=== PATIENT | female | born 1970 | race American Indian/Alaskan Native ===

== ENCOUNTER 2017-12-18 19:04 | Emergency (ER) | payer MEDICARE ==
[2017-12-18] MEDS ORDERED: TYLENOL PO ONE (19:35)
--- NOTE | 2017-12-18 22:16 | XRay Report ---
FINAL REPORT PROCEDURE: XR CHEST ROUTINE 2V TECHNIQUE: PA and lateral chest radiographs were obtained. CPT 84448 HISTORY: productive cough COMPARISON: No prior studies are available for comparison. FINDINGS: Heart: Normal. Mediastinum/Vessels: Normal. Lungs/Pleural space: Normal. Bony thorax: No acute osseous abnormality. Other: IMPRESSION: Negative examination.
[2017-12-18] MEDS ORDERED: TESSALON PERLES PO ONE (23:33)
[2017-12-18] MEDS ORDERED: LIDOCAINE VISCOUS 2% PO ONE (23:33)
--- NOTE | 2017-12-18 23:39 | Emergency Department Report ---
- General Chief Complaint: Upper Respiratory Infection Stated Complaint: FLU LIKE SYMPTOMS Time Seen by Provider: 12/18/17 21:31 Source: patient Mode of arrival: Ambulatory Limitations: No Limitations - History of Present Illness Initial Comments: This is a 47-year-old female nontoxic, well nourished in appearance, no acute signs of distress presents to the ED with c/o of productive cough, rhinorrhea, nasal congestion, and sore throat x4 days. Patient describes productive cough as yellow mucus production. Patient denies any sick contact. Patient denies any recent travels, long car, recent hospital stays. Patient denies any calf pain or calf tenderness. Patient denies any chest pain, short of breath, fever , chills, nausea, vomiting, hemoptysis, numbness, tingling, headache or stiff neck. Patient stated allergies to PCN. MD Complaint: cough, sore throat, rhinorrhea, nasal congestion -: days(s) Severity: mild Severity scale (0 -10): 0 Consistency: constant Improves With: nothing Worsens With: nothing Associated Symptoms: rhinorrhea, nasal congestion, sore throat, cough. denies: fever, chills, myalgias, diaphoresis, headache, stiff neck, chest pain, shortness of breath, abdominal pain, nausea, vomiting, diarrhea, dysuria, rash, confusion, right sweats, weight loss, epistaxis, hoarseness, ear pain Treatments Prior to Arrival: none - Related Data Home Medications Medication Instructions Recorded Confirmed Last Taken Hydrochlorothiazide [Hctz] 25 mg PO QDAY 06/15/13 06/15/13 Unknown Previous Rx's Medication Instructions Recorded Last Taken Type Erythromycin Base [Erythromycin] 500 mg PO TID #21 tablet 06/16/13 Unknown Rx Hydrocodone Bit/Acetaminophen 1 each PO 4XD #14 tablet 06/16/13 Unknown Rx [Lortab 7.5-500 Tablet] Ibuprofen [Motrin] 800 mg PO TID PRN #14 tablet 06/16/13 Unknown Rx Clindamycin HCl [Clindamycin Oral] 150 mg PO Q6H #40 capsule 10/26/13 Unknown Rx Lidocaine Viscous 2% [Xylocaine 5 ml MM Q4H #120 ml 10/26/13 Unknown Rx Viscous 2%] Azithromycin [Zithromax Z-MARSHALL] 250 mg PO DAILY #6 tablet 12/19/17 Unknown Rx Benzonatate [Tessalon Perle] 100 mg PO Q8H PRN #20 capsule 12/19/17 Unknown Rx Ibuprofen [Motrin] 600 mg PO Q8H PRN #30 tablet 12/19/17 Unknown Rx Nystas/Diphen/Xyl Visc/Mylanta 15 ml MM Q4H PRN 10 Days ml 12/19/17 Unknown Rx [Magic Mouthwash] Allergies Allergy/AdvReac Type Severity Reaction Status Date / Time Penicillins AdvReac Swelling Verified 06/15/13 21:31 ED Review of Systems ROS: Stated complaint: FLU LIKE SYMPTOMS Other details as noted in HPI Constitutional: denies: chills, fever Eyes: denies: eye pain, eye discharge, vision change ENT: throat pain. denies: ear pain Respiratory: cough. denies: shortness of breath, wheezing Cardiovascular: denies: chest pain, palpitations Endocrine: no symptoms reported Gastrointestinal: denies: abdominal pain, nausea, diarrhea Genitourinary: denies: urgency, dysuria, discharge Musculoskeletal: denies: back pain, joint swelling, arthralgia Skin: denies: rash, lesions Neurological: denies: headache, weakness, paresthesias Psychiatric: denies: anxiety, depression Hematological/Lymphatic: denies: easy bleeding, easy bruising ED Past Medical Hx - Past Medical History Hx Hypertension: Yes - Social History Smoking Status: Former Smoker Substance Use Type: None - Medications Home Medications: Home Medications Medication Instructions Recorded Confirmed Last Taken Type Hydrochlorothiazide [Hctz] 25 mg PO QDAY 06/15/13 06/15/13 Unknown History Erythromycin Base [Erythromycin] 500 mg PO TID #21 tablet 06/16/13 Unknown Rx Hydrocodone Bit/Acetaminophen 1 each PO 4XD #14 tablet 06/16/13 Unknown Rx [Lortab 7.5-500 Tablet] Ibuprofen [Motrin] 800 mg PO TID PRN #14 tablet 06/16/13 Unknown Rx Clindamycin HCl [Clindamycin Oral] 150 mg PO Q6H #40 capsule 10/26/13 Unknown Rx Lidocaine Viscous 2% [Xylocaine 5 ml MM Q4H #120 ml 10/26/13 Unknown Rx Viscous 2%] Azithromycin [Zithromax Z-MARSHALL] 250 mg PO DAILY #6 tablet 12/19/17 Unknown Rx Benzonatate [Tessalon Perle] 100 mg PO Q8H PRN #20 capsule 12/19/17 Unknown Rx Ibuprofen [Motrin] 600 mg PO Q8H PRN #30 tablet 12/19/17 Unknown Rx Nystas/Diphen/Xyl Visc/Mylanta 15 ml MM Q4H PRN 10 Days ml 12/19/17 Unknown Rx [Magic Mouthwash] ED Physical Exam - General Limitations: No Limitations General appearance: alert, in no apparent distress - Head Head exam: Present: atraumatic, normocephalic - Eye Eye exam: Present: normal appearance Pupils: Present: normal accommodation - ENT ENT exam: Present: mucous membranes moist, TM's normal bilaterally, normal external ear exam - Expanded ENT Exam Expanded Ear exam: Present: normal external inspection Mouth exam: Present: normal external inspection Teeth exam: Present: normal inspection Throat exam: Positive: tonsillar erythema, other (Uvula midline. No abscess or swelling noted.). Negative: tonsillomegaly, tonsillar exudate, R peritonsillar mass, L peritonsillar mass - Neck Neck exam: Present: normal inspection, full ROM. Absent: tenderness, meningismus, lymphadenopathy, thyromegaly - Respiratory Respiratory exam: Present: normal lung sounds bilaterally. Absent: respiratory distress, wheezes, rales, rhonchi, stridor - Cardiovascular Cardiovascular Exam: Present: regular rate, normal rhythm, normal heart sounds. Absent: bradycardia, tachycardia, irregular rhythm, systolic murmur, diastolic murmur, rubs, gallop - GI/Abdominal GI/Abdominal exam: Present: soft, normal bowel sounds. Absent: distended, tenderness, guarding, rebound, rigid, diminished bowel sounds - Rectal Rectal exam: Present: deferred - Extremities Exam Extremities exam: Present: normal inspection, full ROM, normal capillary refill - Back Exam Back exam: Present: normal inspection, full ROM - Neurological Exam Neurological exam: Present: alert, oriented X3 - Psychiatric Psychiatric exam: Present: normal affect, normal mood - Skin Skin exam: Present: warm, dry, intact, normal color. Absent: rash ED Course Vital Signs 12/18/17 19:21 Temperature 99.2 F Pulse Rate 78 Respiratory 18 Rate Blood Pressure 121/79 O2 Sat by Pulse 98 Oximetry - Reevaluation(s) Reevaluation #1: 12/19/17 00:16 Patient is speaking in full sentences with no signs of distress noted. ED Medical Decision Making - Medical Decision Making This is a 47-year-old female that presents with upper respiratory infection. Patient is stable and was examined by me. Chest x-ray has been obtained and dictated by radiologist with normal exam. Patient is notified of x-ray results with no questions noted. Due to patient having symptoms of upper respiratory infection and worsening I will treat patient empirically with zpak. Patient was instructed to increase hydration, rest and take Motrin for fever episodes. Patient received motrin and tesslone perrls in the ED. Vitals stable. Patient is nonfebrile and normal heart rate. Patient was orally hydrated and patient tolerated well known nausea or vomiting. Patient was instructed Follow-up with a primary care doctor in 3-5 days or if symptoms worsen and continue return to emergency room as soon as possible. At time time of discharge, the patient does not seem toxic or ill in appearance. No acute signs of distress noted. Patient agrees to discharge treatment plan of care. No further questions noted by the patient. Critical care attestation.: If time is entered above; I have spent that time in minutes in the direct care of this critically ill patient, excluding procedure time. ED Disposition Clinical Impression: Sore throat Upper respiratory infection Qualifiers: URI type: unspecified URI Qualified Code(s): J06.9 - Acute upper respiratory infection, unspecified Disposition: DC-01 TO HOME OR SELFCARE Is pt being admited?: No Does the pt Need Aspirin: No Condition: Stable Instructions: Upper Respiratory Infection (ED) Additional Instructions: Follow-up with a primary care doctor in 3-5 days or if symptoms worsen and continue return to emergency room as soon as possible. Prescriptions: Azithromycin [Zithromax Z-MARSHALL] 250 mg PO DAILY #6 tablet Benzonatate [Tessalon Perle] 100 mg PO Q8H PRN #20 capsule PRN Reason: Cough Ibuprofen [Motrin] 600 mg PO Q8H PRN #30 tablet PRN Reason: Pain Nystas/Diphen/Xyl Visc/Mylanta [Magic Mouthwash] 15 ml MM Q4H PRN 10 Days ml PRN Reason: Sore Throat Referrals: PRIMARY CARE, [Primary Care Provider] - 3-5 Days BIN PACHECO MD [Staff Physician] - 3-5 Days [facility] [Outside] - 3-5 Days [facility] [Outside] - 3-5 Days Forms: Work/School Release Form(ED)
[2017-12-19 00:29] VITALS: BP 120/80
== END 2017-12-19 00:30 | disposition home or self-care (01) ==
LOC: ED 19:04
DX: J06.9 Acute upper respiratory infection, unspecified (principal); I10 Essential (primary) hypertension; Z88.0 Allergy status to penicillin; Z87.891 Personal history of nicotine dependence
CPT/HCPCS: 71046; 87116; 87430; 99284

== ENCOUNTER 2018-12-16 18:18 | Emergency (ER) | payer MEDICARE ==
[2018-12-16 18:57] VITALS: BP 136/81
--- NOTE | 2018-12-16 18:58 | Emergency Department Report ---
Chief Complaint: Fever Stated Complaint: COLD SX Time Seen by Provider: 12/16/18 18:54 - HPI History of Present Illness: Pt presents with fever, cough, rhinorrhea, congestion x3 days pt has green phlegm production sore throat no sick contacts took nyquil, robitussin, mucinex, theraflu PMHx HTN previous smoker MSE screening note: Focused history and physical exam performed. Due to findings the following was ordered: CXR ED Disposition for MSE Condition: Stable
--- NOTE | 2018-12-16 21:13 | XRay Report ---
PROCEDURE: Chest. TECHNIQUE: PA and lateral views. HISTORY: Productive cough. COMPARISONS: Chest 12/18/2017. FINDINGS: The heart size is normal. There is mild tortuosity of the thoracic aorta. The lungs are clear and wel l expanded. There are no pleural effusions. The soft tissues and regional skeleton are unremarkable. IMPRESSION: No evidence of acute disease. This document is electronically signed by Earnest Joe MD., December 16 2018 09:12:00 PM ET
[2018-12-16] MEDS ORDERED: TYLENOL #3 PO ONE (21:21)
[2018-12-16] MEDS ORDERED: PROVENTIL IH ONE (21:21)
[2018-12-16] MEDS ORDERED: ZITHROMAX PO ONE (21:21)
[2018-12-16] MEDS ORDERED: DELTASONE PO ONE (21:21)
--- NOTE | 2018-12-16 21:41 | Emergency Department Report ---
ED General Adult HPI - General Chief complaint: Fever Stated complaint: COLD SX Time Seen by Provider: 12/16/18 18:54 Source: patient Mode of arrival: Ambulatory Limitations: No Limitations - History of Present Illness Initial comments: Pt presents with fever, cough, rhinorrhea, congestion x3 days pt has green phlegm production sore throat no sick contacts took nyquil, robitussin, mucinex, theraflu PMHx HTN previous smoker Onset/Timin -: week(s) Location: chest Radiation: non-radiation Severity scale (0 -10): 9 Quality: sharp Consistency: constant Improves with: rest Worsens with: other (movement activity) Associated Symptoms: cough, fever/chills, headaches, shortness of breath - Related Data Home Medications Medication Instructions Recorded Confirmed Last Taken hydroCHLOROthiazide [Hctz] 25 mg PO QDAY 06/15/13 06/15/13 Unknown Previous Rx's Medication Instructions Recorded Last Taken Type Erythromycin Base [Erythromycin] 500 mg PO TID #21 tablet 06/16/13 Unknown Rx Hydrocodone Bit/Acetaminophen 1 each PO 4XD #14 tablet 06/16/13 Unknown Rx [Lortab 7.5-500 Tablet] Ibuprofen [Motrin] 800 mg PO TID PRN #14 tablet 06/16/13 Unknown Rx Clindamycin HCl [Clindamycin Oral] 150 mg PO Q6H #40 capsule 10/26/13 Unknown Rx Lidocaine Viscous 2% [Xylocaine 5 ml MM Q4H #120 ml 10/26/13 Unknown Rx Viscous 2%] Azithromycin [Zithromax Z-MARSHALL] 250 mg PO DAILY #6 tablet 12/19/17 Unknown Rx Benzonatate [Tessalon Perle] 100 mg PO Q8H PRN #20 capsule 12/19/17 Unknown Rx Ibuprofen [Motrin] 600 mg PO Q8H PRN #30 tablet 12/19/17 Unknown Rx Nystas/Diphen/Xyl Visc/Mylanta 15 ml MM Q4H PRN 10 Days ml 12/19/17 Unknown Rx [Magic Mouthwash] Azithromycin [Zithromax Z-MARSHALL] 250 tab PO DAILY #6 tab 12/16/18 Unknown Rx Benzonatate [Tessalon Perles] 100 mg PO Q8HR PRN #30 capsule 12/16/18 Unknown Rx Ibuprofen 800 mg PO TID PRN #30 tablet 12/16/18 Unknown Rx predniSONE [Deltasone] 40 mg PO QDAY 5 Days #10 tab 12/16/18 Unknown Rx Allergies Allergy/AdvReac Type Severity Reaction Status Date / Time Penicillins AdvReac Swelling Verified 06/15/13 21:31 ED Review of Systems ROS: Stated complaint: COLD SX Other details as noted in HPI Constitutional: denies: chills, fever Eyes: denies: eye pain, eye discharge, vision change ENT: ear pain, throat pain, congestion Respiratory: cough, shortness of breath, wheezing Cardiovascular: chest pain Endocrine: no symptoms reported Gastrointestinal: denies: abdominal pain, nausea, diarrhea Genitourinary: denies: urgency, dysuria, discharge Musculoskeletal: denies: back pain, joint swelling, arthralgia Skin: denies: rash, lesions Neurological: denies: headache, weakness, paresthesias Psychiatric: denies: anxiety, depression Hematological/Lymphatic: denies: easy bleeding, easy bruising ED Past Medical Hx - Past Medical History Hx Hypertension: Yes - Surgical History Past Surgical History?: No - Social History Smoking Status: Former Smoker Substance Use Type: None - Medications Home Medications: Home Medications Medication Instructions Recorded Confirmed Last Taken Type hydroCHLOROthiazide [Hctz] 25 mg PO QDAY 06/15/13 06/15/13 Unknown History Erythromycin Base [Erythromycin] 500 mg PO TID #21 tablet 06/16/13 Unknown Rx Hydrocodone Bit/Acetaminophen 1 each PO 4XD #14 tablet 06/16/13 Unknown Rx [Lortab 7.5-500 Tablet] Ibuprofen [Motrin] 800 mg PO TID PRN #14 tablet 06/16/13 Unknown Rx Clindamycin HCl [Clindamycin Oral] 150 mg PO Q6H #40 capsule 10/26/13 Unknown Rx Lidocaine Viscous 2% [Xylocaine 5 ml MM Q4H #120 ml 10/26/13 Unknown Rx Viscous 2%] Azithromycin [Zithromax Z-MARSHALL] 250 mg PO DAILY #6 tablet 12/19/17 Unknown Rx Benzonatate [Tessalon Perle] 100 mg PO Q8H PRN #20 capsule 12/19/17 Unknown Rx Ibuprofen [Motrin] 600 mg PO Q8H PRN #30 tablet 12/19/17 Unknown Rx Nystas/Diphen/Xyl Visc/Mylanta 15 ml MM Q4H PRN 10 Days ml 12/19/17 Unknown Rx [Magic Mouthwash] Azithromycin [Zithromax Z-MARSHALL] 250 tab PO DAILY #6 tab 12/16/18 Unknown Rx Benzonatate [Tessalon Perles] 100 mg PO Q8HR PRN #30 capsule 12/16/18 Unknown Rx Ibuprofen 800 mg PO TID PRN #30 tablet 12/16/18 Unknown Rx predniSONE [Deltasone] 40 mg PO QDAY 5 Days #10 tab 12/16/18 Unknown Rx ED Physical Exam - General Limitations: No Limitations General appearance: alert, in no apparent distress - Head Head exam: Present: atraumatic, normocephalic - Eye Eye exam: Present: normal appearance, PERRL, EOMI Pupils: Present: normal accommodation - ENT ENT exam: Present: mucous membranes moist - Expanded ENT Exam Expanded Ear exam: Present: normal external inspection TM/Canal exam: Erythema: Right TM, Left TM, Canal Tenderness: Left TM, Right TM Mouth exam: Absent: trismus Throat exam: Positive: normal inspection, tonsillar erythema, tonsillomegaly, other (uvula midline no exudate no lesions ). Negative: tonsillar exudate, R peritonsillar mass, L peritonsillar mass - Neck Neck exam: Present: normal inspection, full ROM, lymphadenopathy. Absent: tenderness, thyromegaly - Respiratory Respiratory exam: Present: normal lung sounds bilaterally, wheezes, chest wall tenderness (right lateral chest wall tenderness ). Absent: respiratory distress, stridor - Cardiovascular Cardiovascular Exam: Present: regular rate, normal rhythm, normal heart sounds. Absent: systolic murmur, diastolic murmur, rubs, gallop - GI/Abdominal GI/Abdominal exam: Present: soft, normal bowel sounds. Absent: distended, tenderness, guarding, rebound, rigid, bruit, hernia - Extremities Exam Extremities exam: Present: normal inspection, full ROM, normal capillary refill. Absent: tenderness - Back Exam Back exam: Present: normal inspection, full ROM, rash noted. Absent: tenderness, CVA tenderness (R), CVA tenderness (L) - Neurological Exam Neurological exam: Present: alert, oriented X3, CN II-XII intact, normal gait, reflexes normal - Psychiatric Psychiatric exam: Present: normal affect, normal mood - Skin Skin exam: Present: warm, dry, intact, normal color. Absent: rash ED Course Vital Signs 12/16/18 18:56 Temperature 100 F H Pulse Rate 85 Respiratory 14 Rate Blood Pressure 136/81 O2 Sat by Pulse 95 Oximetry ED Medical Decision Making - Radiology Data Radiology results: report reviewed, image reviewed cc: MIGUEL SHARPE Fluoro Time In Minutes: PROCEDURE: Chest. TECHNIQUE: PA and lateral views. HISTORY: Productive cough. COMPARISONS: Chest 12/18/2017. FINDINGS: The heart size is normal. There is mild tortuosity of the thoracic aorta. The lungs are clear and well expanded. There are no pleural effusions. The soft tissues and regional skeleton are unremarkable. IMPRESSION: No evidence of acute disease. This document is electronically signed by Earnest Trevino MD., December 16 2018 09:12:00 PM ET Transcribed By: NICOLE Dictated By: EARNEST TREVINO MD Electronically Authenticated By: EARNEST TREVINO MD Signed Date/Time: 12/16/182112 DD/ 57 TD/TT: 12/16/182023 - Medical Decision Making Chest x-rays no infiltrates no opacities, wheezing is resolved with neb tx , plan dc to home with Dx Bronchitis, prednisone, zpack, albuterol, tessalon, ibuprofen, follow up with pcp in 2-3 days pt verbalized agreement and understanding of discharge plan. pt dc'd to home in stable condition. Critical care attestation.: If time is entered above; I have spent that time in minutes in the direct care of this critically ill patient, excluding procedure time. ED Disposition Clinical Impression: Bronchitis Upper respiratory infection Qualifiers: URI type: unspecified viral URI Qualified Code(s): J06.9 - Acute upper respiratory infection, unspecified Disposition: DC-01 TO HOME OR SELFCARE Is pt being admited?: No Does the pt Need Aspirin: No Condition: Stable Instructions: Acute Bronchitis (ED), Upper Respiratory Infection (ED) Prescriptions: predniSONE [Deltasone] 40 mg PO QDAY 5 Days #10 tab Ibuprofen 800 mg PO TID PRN #30 tablet PRN Reason: pain fever Benzonatate [Tessalon Perles] 100 mg PO Q8HR PRN #30 capsule PRN Reason: Cough Azithromycin [Zithromax Z-MARSHALL] 250 tab PO DAILY #6 tab Referrals: [facility] [Outside] - 3-5 Days Forms: Work/School Release Form(ED) Time of Disposition: 21:59
== END 2018-12-16 22:09 | disposition home or self-care (01) ==
LOC: ED 18:18
DX: J40 Bronchitis, not specified as acute or chronic (principal); J06.9 Acute upper respiratory infection, unspecified; I10 Essential (primary) hypertension; Z87.891 Personal history of nicotine dependence; Z88.0 Allergy status to penicillin
CPT/HCPCS: 71046; 94640; 99283; J7512